=== PATIENT | female | born 1995 | race Caucasian/White ===

== ENCOUNTER 2021-09-04 20:29 | Emergency (ER) | payer OTHER ==
[~2021-09-04 20:29] MED LIST: EFFEXOR XR75 MG PO; GABAPENTIN300 MG PO; SUBOXONE 8 MG-1 EACH SL
[2021-09-04 21:07] LABS: HEMOGLOBIN 9.7 gm/dl (12.3-15.3); RED BLOOD COUNT 3.76 M/UL (4.00-5.10)
[2021-09-04 21:33] LABS: BUN/CREATININE RATIO 17 (0-10)
[2021-09-05 13:18] LABS: ENTEROCOCCUS Not Detected (Negative); KPC-CARBAPENEM-RESISTANCE GENE Not Detected (Negative); mecA (METHICILLIN RESIST GENE Not Detected (Negative); vanA/B (VANCOMYCIN RESIST GENE Not Detected (Negative)
[2021-09-05 13:19] LABS: ACINETOBACTER BAUMANNII Not Detected (Negative); CANDIDA ALBICANS Not Detected (Negative); CANDIDA KRUSEI Not Detected (Negative); CANDIDA TROPICALIS Not Detected (Negative); ESCHERICHIA COLI Not Detected (Negative); HAEMOPHILUS INFLUENZAE Not Detected (Negative); KLEBSIELLA OXYTOCA Not Detected (Negative); KLEBSIELLA PNEUMONIAE Not Detected (Negative); PROTEUS Not Detected (Negative); PSEUDOMONAS AERUGINOSA Not Detected (Negative); SERRATIA MARCESANS Not Detected (Negative); STREP AGALACTIAE (GROUP B) Not Detected (Negative); STREP PYOGENES (GROUP A) Not Detected (Negative); STREPTOCOCCUS Not Detected (Negative)
[2021-09-05 17:18] LABS: STAPHYLOCOCCUS DETECTED (Negative); STAPHYLOCOCCUS AUREUS DETECTED (Negative)
== END 2021-09-05 09:35 ==
LOC: ER1 20:29
PROVIDERS: Family Medicine
DX: A41.9 Sepsis, unspecified organism (principal); U07.1 COVID-19; J96.91 Respiratory failure, unspecified with hypoxia; L03.115 Cellulitis of right lower limb; M46.1 Sacroiliitis, not elsewhere classified; R79.89 Other specified abnormal findings of blood chemistry; F17.200 Nicotine dependence, unspecified, uncomplicated
CPT/HCPCS: 36600; 51701; 71045; 72131; 72192; 73630; 80053; 80307; 81001; 82803; 83605; 85025; 87040; 87077; 87150; 87186; 93005; 96365; 99285; J3370; J7030; U0002